=== PATIENT | male | born 1995 | race Two or more races ===

== ENCOUNTER 2019-09-23 15:29 | Emergency (ER) | payer OTHER ==
[~2019-09-23] VITALS: Ht 182.9 cm; Wt 80.7 kg
--- NOTE | 2019-09-23 15:40 | NUR ---
ED Nurse Note: Pt walked in to ED d/t RT thumb lac per pt, he accidentally cut his hand on a mallet cutter. Pt is A&Ox4, VSS, on RA, afebrile on triage.
[2019-09-23 15:43] VITALS: BP 120/67
[2019-09-23] MEDS ORDERED: Surgicel 4in x 8in TOPIC ONE (16:00)
--- NOTE | 2019-09-23 16:24 | Emergency Room Report ---
History of Present Illness General Chief Complaint: Upper Extremity Injury Source: Patient Present Illness HPI 24-year-old male with 24-year-old male with no signal past medical history here status post laceration. Patient reports that he was working and accidentally cut his finger with a meat washer. Patient reported that he started bleeding a lot and apply pressure bandage to the affected area and came here. Has full range of motion of the affected area. Avulsion laceration noted right thumb. Patient denies being on any blood thinners. Neurovascularly intact. Denies tingling or numbness. Denies other injuries. Is up-to-date with tetanus shot. Has not taken medication for symptom relief. 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: Negative COVID-19 COVID-19 Testing Source: nasopharyn Patient History Past Medical History: see triage record Past Surgical History: none Pertinent Family History: none Immunizations: UTD Reviewed Nursing Documentation: PMH: Agreed; PSxH: Agreed Nursing Documentation-PMH Past Medical History: No Stated History Review of Systems All Other Systems: negative except mentioned in HPI Physical Exam Vital Signs Date Time Temp Pulse Resp B/P (MAP) Pulse Ox O2 Delivery O2 Flow Rate FiO2 09/23/19 15:35 97.9 67 15 120/67 (84) 99 Room Air Sp02 EP Interpretation: reviewed, normal General Appearance: no apparent distress, alert, GCS 15, non-toxic Head: normocephalic, atraumatic Eyes: bilateral eye normal inspection, bilateral eye PERRL ENT: hearing grossly normal, normal pharynx, no angioedema, normal voice Neck: full range of motion, supple, supple/symm/no masses Respiratory: chest non-tender, lungs clear, normal breath sounds, no rhonchi, no retraction, no wheezing, speaking full sentences Cardiovascular #1: regular rate, rhythm, no edema, no murmur, normal capillary refill Cardiovascular #2: 2+ radial (R), 2+ radial (L) Gastrointestinal: normal bowel sounds, non tender, soft, non-distended, no guarding, no rebound Genitourinary: no CVA tenderness Musculoskeletal: back normal, no calf tenderness, non-tender Neurologic: alert, motor strength/tone normal, oriented x3, sensory intact, responsive, speech normal Psychiatric: judgement/insight normal, memory normal, mood/affect normal, no suicidal/homicidal ideation Skin: laceration - Avulsion laceration right thumb Lymphatic: no adenopathy Medical Decision Making PA Attestation Patient take medication as directed, followAll my diagnosis and treatment plans were reviewed ad discussed with my supervising physician Dr. Linton Diagnostic Impression: Primary Impression: Nailbed laceration, finger ER Course 24-year-old male with 24-year-old male with no signal past medical history here status post laceration. Patient reports that he was working and accidentally cut his finger with a meat washer. Patient reported that he started bleeding a lot and apply pressure bandage to the affected area and came here. Has full range of motion of the affected area. Avulsion laceration noted right thumb. Patient denies being on any blood thinners. Neurovascularly intact. Denies tingling or numbness. Denies other injuries. Is up-to-date with tetanus shot. Has not taken medication for symptom relief. Ddx considered but are not limited to : Superficial laceration, deep laceration , tendon involvement with laceration, laceration with foreign body Vital signs: are WNL, pt. is afebrile H&PE are most consistent with: Avulsion laceration right finger ORDERS: Finger x-ray, Augmentin, Tylenol ED INTERVENTIONS: Surgicel applied, wound clean and dressed, wound wrapped DISCHARGE: At this time pt. is stable for d/c to home. Will provide printed patient care instructions, and any necessary prescriptions. Care plan and follow up instructions have been discussed with the patient prior to discharge. Patient medications reviewed, follow primary care provider, worsening symptoms return to emergency room. At this time due to the nature of the laceration and being an avulsion laceration suturing cannot be done. Other X-Ray Diagnostic Results Other X-Ray Diagnostic Results : X-Ray ordered: Right finger # of Views/Limited Vs Complete: 2 View Indication: Pain EP Interpretation: Yes PA Xray: Interpretation reviewed, by supervising MD, and agrees with findings. Interpretation: no dislocation, no soft tissue swelling, no fractures, other - No foreign body Impression: No acute disease Electronically Signed by: Althea Maddox PA-C Last Vital Signs Date Time Temp Pulse Resp B/P (MAP) Pulse Ox O2 Delivery O2 Flow Rate FiO2 09/23/19 15:43 97.9 15 120/67 99 Room Air 09/23/19 15:35 67 Disposition: HOME, SELF-CARE Condition: Stable Scripts Acetaminophen* (TYLENOL EXTRA STRENGTH*) 500 Mg Tablet 500 MG ORAL Q8H PRN for Prn Headache/Temp > 101, #30 TAB 0 Refills Prov: Althea Reeves 09/23/19 Amoxicillin/Potassium Clav 875-125* (AUGMENTIN 875-125 TABLET*) 1 Each Tablet 1 TAB ORAL TWICE A DAY for 10 Days, #20 TAB Prov: Althea Reeves 09/23/19 Patient Instructions: Laceration Care, Adult, [id number] Additional Instructions: Take medication as directed, follow primary care provider, worsening symptoms return to the emergency Althea Reeves Sep 23, 2019 16:24
[2019-09-23] MEDS ORDERED: AUGMENTIN 875-1 EAC1 ORAL (16:25)
[2019-09-23] MEDS ORDERED: TYLENOL EXTRA500 MG ORAL (16:25)
[2019-09-23 16:30] VITALS: BP 122/70
--- NOTE | 2019-09-23 16:30 | NUR ---
ER DISCHARGE NOTE: Patient is cleared to be discharged per ERPA, pt is aox4, on room air, with stable vital signs. pt was given dc and prescription instructions, pt was able to verbalize understanding, pt id band removed. pt is able to ambulate with steady gait. pt took all belongings.
--- NOTE | 2019-09-23 18:12 | Diagnostic Imaging Report ---
INDICATION: Pain TECHNIQUE: XRAY Fingers 2-3v R Multiple views of the right fingers were obtained COMPARISON: None FINDINGS: There is no acute fracture or dislocation. Joint spaces are maintained. There is a defect in the epidermis overlying the distal first phalanx, with associated soft tissue swelling. No radiopaque foreign body identified. IMPRESSION: 1. No acute fracture or dislocation. 2. First digit laceration with associated soft tissue swelling.
== END 2019-09-23 18:19 | disposition home or self-care (01) ==
LOC: EMR 15:55
DX: S61.011A Laceration without foreign body of right thumb without damage to nail, initial encounter (principal); W26.9XXA Contact with unspecified sharp object(s), initial encounter; Y92.9 Unspecified place or not applicable
CPT/HCPCS: 99283